=== PATIENT | female | born 1980 | race Caucasian/White ===

== ENCOUNTER 2022-02-13 09:32 | Emergency (ER) | payer OTHER ==
[~2022-02-13 09:32] MED LIST: PERCOCET 5-3251 EACH PO; PROZAC40 MG PO; VITAMIN D10000 UNIT PO
[2022-02-13 11:05] LABS: INR 1.05 (0.9-1.2); PROTHROMBIN TIME 13.1 SECONDS (11.8-13.4); PTT 25.9 SECONDS (24.4-34.7)
[2022-02-13 11:15] LABS: ALBUMIN 3.2 g/dL (3.4-5.0); BILIRUBIN - TOTAL 0.3 mg/dL (0.2-1.0); BUN/CREAT RATIO (CALC) 16.4 RATIO; CREATININE 0.73 mg/dL (0.51-0.95); FT4 (FREE T4) 1.2 ng/dL (0.76-1.46); GLOBULIN (CALCULATION) 4.5 g/dL; MAGNESIUM 2.1 mg/dL (1.8-2.4); POTASSIUM 3.8 mmol/L (3.5-5.1); TOTAL PROTEIN 7.7 g/dL (6.4-8.2)
[2022-02-13 11:17] LABS: LACTIC ACID 1.4 mmol/L (0.4-1.9)
[2022-02-13 11:18] LABS: BASOPHIL 0.6 % (0-2); EOSINOPHIL 3.7 % (0-5); HCT 38.4 % (37.0-47.0); HGB 12.4 g/dl (12.5-16.0); LYMPHOCYTE 30.4 % (15-48); MCH 27.7 pg (25.0-31.0); MCHC 32.3 g/dL (32.0-36.0); MCV 85.7 fL (78.0-100.0); MONOCYTE 7.3 % (0-12); MPV 9.7 fL (6.0-9.5); NEUTROPHIL 57.1 % (41-80); NRBC 0; PLT 256 K/uL (150-400); RBC 4.48 M/uL (4.20-5.40); RDW 14.1 % (11.5-14.0)
[2022-02-13 11:52] LABS: CORONAVIRUS 2019 SARS-COV-2 NEGATIVE (NEGATIVE); INFLUENZA A NAA NEGATIVE (NEGATIVE)
[2022-02-13] MEDS ORDERED: VIBRAMYCIN100 MG PO (13:19)
[2022-02-13] MEDS ORDERED: TESSALON PERLE100 MG PO (13:19)
[2022-02-13] MEDS ORDERED: ONDANSETRON ODT4 MG PO (13:19)
[2022-02-13] MEDS ORDERED: VENTOLIN HFA18 GM INH (13:19)
[2022-02-13] MEDS ORDERED: PREDNISONE 20MG20 MG PO (13:19)
== END 2022-02-13 13:41 | disposition home or self-care (01) ==
LOC: FER 09:32
PROVIDERS: Emergency Medicine
DX: J20.9 Acute bronchitis, unspecified (principal); Z20.822 Contact with and (suspected) exposure to COVID-19; Z88.0 Allergy status to penicillin
CPT/HCPCS: 36415; 71045; 80053; 83605; 83735; 83880; 84145; 84439; 84484; 85025; 85610; 85730; 93005; 94664; J2930; U0002

== ENCOUNTER 2022-04-10 12:41 | Emergency (ER) | payer OTHER ==
[~2022-04-10 12:41] MED LIST changes: +ONDANSETRON ODT4 MG PO; +PREDNISONE 20MG20 MG PO; +TESSALON PERLE100 MG PO; +VENTOLIN HFA18 GM INH; +VIBRAMYCIN100 MG PO
[2022-04-10 13:20] LABS: BASOPHIL 0.4 % (0-2); EOSINOPHIL 3.2 % (0-5); HCT 38.3 % (37.0-47.0); HGB 12.5 g/dl (12.5-16.0); LYMPHOCYTE 14.4 % (15-48); MCH 27.9 pg (25.0-31.0); MCHC 32.6 g/dL (32.0-36.0); MCV 85.5 fL (78.0-100.0); MONOCYTE 5.1 % (0-12); MPV 9.5 fL (6.0-9.5); NEUTROPHIL 76.5 % (41-80); NRBC 0; PLT 254 K/uL (150-400); RBC 4.48 M/uL (4.20-5.40); RDW 13.7 % (11.5-14.0); WBC 8.9 K/uL (4.0-10.5)
[2022-04-10 13:42] LABS: ALBUMIN 3.4 g/dL (3.4-5.0); BILIRUBIN - TOTAL 0.5 mg/dL (0.2-1.0); BUN/CREAT RATIO (CALC) 12.5 RATIO; CREATININE 0.8 mg/dL (0.51-0.95); GLOBULIN (CALCULATION) 4.3 g/dL; POTASSIUM 3.8 mmol/L (3.5-5.1); TOTAL PROTEIN 7.7 g/dL (6.4-8.2)
[2022-04-10 13:58] LABS: CORONAVIRUS 2019 SARS-COV-2 NEGATIVE (NEGATIVE); INFLUENZA A NAA NEGATIVE (NEGATIVE)
[2022-04-10 15:59] LABS: BILIRUBIN NEGATIVE (NEGATIVE); BLOOD 1+ Ery/uL (NEGATIVE); CLARITY HAZY (CLEAR); COLOR YELLOW (YELLOW); GLUCOSE (U) NORMAL (NORMAL); LEUKOCYTES NEGATIVE Leu/uL (NEGATIVE); NITRITE NEGATIVE (NEGATIVE); PROTEIN NEGATIVE (NEGATIVE); UROBILINOGEN 0.2 mg/dL (0.2-1.0); pH 5.5 (5.0-9.0)
[2022-04-10 16:06] LABS: BACTERIA TRACE; URINARY RBC RARE
[2022-04-10] MEDS ORDERED: PROTONIX 40MG T40 MG PO (16:19)
== END 2022-04-10 17:08 | disposition home or self-care (01) ==
LOC: FER 12:41
PROVIDERS: Physician Assistant
DX: R07.89 Other chest pain (principal); R94.31 Abnormal electrocardiogram [ECG] [EKG]; Z20.822 Contact with and (suspected) exposure to COVID-19; Z88.0 Allergy status to penicillin
CPT/HCPCS: 36415; 71045; 71275; 80053; 81001; 83690; 84145; 84484; 85025; 93005; J0780; J1200; J1885; J2405; J7030; Q9967; U0002